=== PATIENT | male | born 1985 ===

== ENCOUNTER 2021-02-28 15:03 | Outpatient (CLI) | payer OTHER ==
[2021-02-28] MEDS ORDERED: MULT-658 PO (15:56)
== END 2021-02-28 23:59 | disposition home or self-care (01) ==
LOC: STAR 15:03
PROVIDERS: ATTEND Otolaryngology
DX: Z02.9 Encounter for administrative examinations, unspecified (principal)

== ENCOUNTER 2021-03-04 10:06 | Day surgery (SDC) | payer OTHER ==
[~2021-03-04] VITALS: Ht 177.8 cm; Wt 82.5 kg
[~2021-03-04 10:06] MED LIST: MULT-658 PO
[2021-03-04] MEDS ORDERED: CHLORHEXIDINE 15 ML UDC PO ONE (10:30)
[2021-03-04] MEDS ORDERED: LACTATED RINGERS 1,000 ML IV SCH (10:30)
[2021-03-04] MEDS ORDERED: CHLORHEXIDINE 15 ML UDC ONE (10:31)
[2021-03-04] MEDS ORDERED: MIDAZOLAM 1 MG/ML, 2ML ONE (10:52)
[2021-03-04] MEDS ORDERED: PROPOFOL 50 ML ONE ×2 (10:52→14:14)
[2021-03-04] MEDS ORDERED: FENTANYL PF 250 MCG/5ML ONE (10:52)
[2021-03-04] MEDS ORDERED: LIDOCAINE/PF 1%, 30ML ONE (10:59)
[2021-03-04] MEDS ORDERED: OXYMETAZOLINE NASAL SPRAY 0.05%,30ML ONE (10:59)
[2021-03-04] MEDS ORDERED: NEOSPORIN OINT, 15GM ONE (10:59)
[2021-03-04] MEDS ORDERED: EPINEPHRINE 1 MG/ML, 1ML ONE (10:59)
[2021-03-04] MEDS ORDERED: CEFAZOLIN 1,000 MG ONE (13:33)
[2021-03-04] MEDS ORDERED: LIDOCAINE 1%-EPI 1:100K, 20ML INFIL ONE (13:50)
[2021-03-04] MEDS ORDERED: SUCCINYLCHOLINE 20 MG/ML, 10ML ONE (13:55)
[2021-03-04] MEDS ORDERED: ROCURONIUM 10MG/ML,5ML ONE (13:55)
[2021-03-04] MEDS ORDERED: ONDANSETRON 2MG/ML, 2ML ONE (13:56)
[2021-03-04] MEDS ORDERED: DEXAMETHASONE 4 MG/ML, 1ML ONE (13:56)
[2021-03-04] MEDS ORDERED: MEPERIDINE/PF 25MG/0.5ML IVPush PRN (14:00)
[2021-03-04] MEDS ORDERED: LABETALOL 5MG/ML, 20ML IV PRN (14:00)
[2021-03-04] MEDS ORDERED: DIAZEPAM 5 MG/ML, 2ML IVPush PRN (14:00)
[2021-03-04] MEDS ORDERED: PROMETHAZINE 25 MG/ML, 1ML IVPush PRN (14:00)
[2021-03-04] MEDS ORDERED: EPHEDRINE 50 MG/ML, 1ML IVPush PRN (14:00)
[2021-03-04] MEDS ORDERED: OXYcodone 5 MG/5 ML ORAL.SOL UDC PO PRN (14:00)
[2021-03-04] MEDS ORDERED: ONDANSETRON 2MG/ML, 2ML IVPush PRN (14:00)
[2021-03-04] MEDS ORDERED: DIPHENHYDRAMINE 50 MG/ML, 1ML IVPush PRN (14:00)
[2021-03-04] MEDS ORDERED: morphine SULFATE 10 MG/ML, 1ML IVPush PRN (14:00)
[2021-03-04] MEDS ORDERED: FENTANYL PF 100 MCG/2ML IV PRN (14:00)
[2021-03-04] MEDS ORDERED: EPHEDRINE 50 MG/ML, 1ML IM PRN (14:00)
== END 2021-03-04 17:50 | disposition home or self-care (01) ==
LOC: OUT 10:06
PROVIDERS: ATTEND Otolaryngology
DX: J34.2 Deviated nasal septum (principal); J34.3 Hypertrophy of nasal turbinates; J34.89 Other specified disorders of nose and nasal sinuses
CPT/HCPCS: 30140; 30420; 30630; J0171; J0330; J0690; J1100; J2250; J2405; J2704; J3010; J7120